=== PATIENT | male | born 1970 | race Caucasian/White ===

== ENCOUNTER 2019-12-28 17:53 | Emergency (ER) | payer OTHER ==
[~2019-12-28] VITALS: Ht 175.2 cm; Wt 124.7 kg
[~2019-12-28 17:53] MED LIST: AMBIEN10 M1 PO; ANUSOL-HC25 MG R; ATIVAN1 MG PO; AUGMENTIN 875875 MG PO; BLOOD PRESSURE MED; CLARITIN10 MG PO; EFFEXOR XR75 M2 PO; FIORICET 325 MG1 TAB PO; FLEXERIL10 MG PO; HYDROCODONE BIT1 T11 PO; KEFLEX500 MG PO; KETOROLAC10 MG PO; LISINOPRIL/HCTZ1 TA3; MEDROL DOSEPAK4 MG PO; MELOXICAM7.5 MG PO; MOTRIN800 MG PO; PREDNICOT20 MG PO; ROBITUSSIN AC 110 ML PO; VICO10300 PO; VICODIN 5/500 505 MG PO; WELLBUTRIN XL150 MG PO; WELLBUTRIN75 MG PO; XANAX0.25 MG PO; ZANTAC150 MG PO; ZITHROMAX Z PA250 MG PO; ZOFRAN4 MG PO
[2019-12-28 17:58] VITALS: BP 135/78
== END 2019-12-28 18:40 | disposition home or self-care (01) ==
LOC: ED 17:53
DX: J32.9 Chronic sinusitis, unspecified (principal); I10 Essential (primary) hypertension; F41.9 Anxiety disorder, unspecified; F17.200 Nicotine dependence, unspecified, uncomplicated; Z91.013 Allergy to seafood; Z91.041 Radiographic dye allergy status; Z79.899 Other long term (current) drug therapy

== ENCOUNTER 2022-04-29 19:42 | Emergency (ER) | payer OTHER ==
[~2022-04-29] VITALS: Ht 175.2 cm; Wt 124.7 kg
[2022-04-29 19:53] VITALS: BP 146/67
[2022-04-29] MEDS ORDERED: NAPROXEN250 MG PO (21:24)
== END 2022-04-29 21:31 | disposition home or self-care (01) ==
LOC: ED 19:42
DX: S06.0X0A Concussion without loss of consciousness, initial encounter (principal); M54.50 Low back pain, unspecified; R11.2 Nausea with vomiting, unspecified; R51.9 Headache, unspecified; R42 Dizziness and giddiness; Z91.013 Allergy to seafood; V40.5XXA Car driver injured in collision with pedestrian or animal in traffic accident, initial encounter; Y93.89 Activity, other specified; Y92.89 Other specified places as the place of occurrence of the external cause; Y99.8 Other external cause status

== ENCOUNTER 2024-03-05 08:54 | Emergency (ER) | payer SELFPAY ==
[~2024-03-05] VITALS: Ht 175.2 cm; Wt 129.3 kg
[~2024-03-05 08:54] MED LIST changes: +NAPROXEN250 MG PO
[2024-03-05 09:07] VITALS: BP 149/60
[2024-03-05] MEDS ORDERED: PREDNISONE50 MG PO (11:12)
== END 2024-03-05 12:01 | disposition home or self-care (01) ==
LOC: ED 08:54
DX: B34.9 Viral infection, unspecified (principal); Z20.822 Contact with and (suspected) exposure to COVID-19; I10 Essential (primary) hypertension; F41.9 Anxiety disorder, unspecified; Z87.442 Personal history of urinary calculi; Z90.49 Acquired absence of other specified parts of digestive tract; Z91.041 Radiographic dye allergy status; Z91.013 Allergy to seafood; Z98.890 Other specified postprocedural states; Z79.899 Other long term (current) drug therapy

== ENCOUNTER 2024-12-26 21:43 | Emergency (ER) | payer SELFPAY ==
[~2024-12-26] VITALS: Ht 175.2 cm; Wt 123.8 kg
[~2024-12-26 21:43] MED LIST changes: +PREDNISONE50 MG PO
[2024-12-26 23:06] VITALS: BP 144/77
[2024-12-26] MEDS ORDERED: SODIUM CHLORIDE 0.9% 1,000 ML IV ONE (23:15)
[2024-12-26] MEDS ORDERED: Ondansetron Hydrochloride 4 MG/2 ML VIAL IV ONE (23:15)
[2024-12-26 23:31] LABS: MEAN CELL VOLUME 88.4 fl (80.0-94.0); MEAN CORPUSCULAR HGB 30.8 pg (27.0-31.0); MEAN PLATELET VOLUME 11.3 fl (9.6-12.3); NUCLEATED RED BLOOD CELL 0.0 % (0.0-0.0); NUCLEATED RED BLOOD CELL 0.0 10*3/uL (0.0-0.0); PLATELET COUNT AUTOMATED 261 10*3/uL (130-400); RED CELL DISTRI WIDTH 12.6 % (0-14.5)
[2024-12-26 23:33] LABS: MANUAL DIFF REFLEX YES
[2024-12-26 23:52] LABS: BUN 9 mg/dl (9-23); SGPT/ALT 37 U/L (5-49)
[2024-12-26 23:57] LABS: PLATELET SUFFICIENCY NORMAL (NORMAL)
[2024-12-27] MEDS ORDERED: Ondansetron4 MG PO (01:48)
[2024-12-27] MEDS ORDERED: PERCOCET 5-3251 EACH PO (01:48)
[2024-12-27] MEDS ORDERED: TAMSULOSIN HCL0.4 MG PO (01:48)
[2024-12-27] MEDS ORDERED: Acetaminophen/Oxycodone 5 MG/325 MG TABLET PO ONE (01:50)
[2024-12-27] MEDS ORDERED: Ondansetron 4 MG 2 TAB ED PACK PO SCH (01:50)
== END 2024-12-27 02:00 | disposition home or self-care (01) ==
LOC: ED 21:43
PROVIDERS: Emergency Medicine
DX: N13.2 Hydronephrosis with renal and ureteral calculous obstruction (principal); N17.9 Acute kidney failure, unspecified; Z79.899 Other long term (current) drug therapy; Z91.041 Radiographic dye allergy status; Z91.013 Allergy to seafood; Z98.890 Other specified postprocedural states